=== PATIENT | female | born 1995 | race Caucasian/White ===

== ENCOUNTER 2021-09-10 20:30 | Emergency (ER) | payer OTHER ==
[2021-09-10 21:23] LABS: HEMOGLOBIN 11.5 gm/dl (12.3-15.3); RED BLOOD COUNT 4.46 M/UL (4.00-5.10)
[2021-09-10 21:51] LABS: BUN/CREATININE RATIO 18 (0-10)
[2021-09-10] MEDS ORDERED: IBUPROFEN600 MG PO (22:04)
== END 2021-09-10 22:30 ==
LOC: ER1 20:30
PROVIDERS: Family Medicine
DX: R51.9 Headache, unspecified (principal); M54.50 Low back pain, unspecified; Z23 Encounter for immunization; Y04.2XXA Assault by strike against or bumped into by another person, initial encounter; Y92.149 Unspecified place in prison as the place of occurrence of the external cause
CPT/HCPCS: 70450; 71045; 72100; 72125; 80053; 84703; 85025; 90471; 90715; 96374; 99284; J1885